=== PATIENT | female | born 1935 | race Caucasian/White ===

== ENCOUNTER 2017-11-14 23:50 | Inpatient (IN) | payer MEDICARE ==
[~2017-11-14] VITALS: Ht 185.4 cm; Wt 118.8 kg
[~2017-11-14 23:50] MED LIST: AMLO5TAB2 PO; HYDR25TA6 PO; LISI-167 PO; NYST60PO TP
[2017-11-15] MEDS ORDERED: ASPIRIN 81 MG TABLET CHEW PO ONE
[2017-11-15] MEDS ORDERED: MORPHINE SULFATE 4 MG/ML, 1ML IVPush PRN
[2017-11-15] MEDS ORDERED: ONDANSETRON ODT 4 MG PO ONE
[2017-11-15] MEDS ORDERED: ASPIRIN 81 MG TABLET CHEW ONE (00:16)
[2017-11-15] MEDS ORDERED: ONDANSETRON ODT 4 MG ONE (00:16)
[2017-11-15] MEDS ORDERED: MORPHINE SULFATE 4 MG/ML, 1ML ONE (00:16)
[2017-11-15 00:17] LABS: BASOPHILS # (AUTO) 0.01 x10^3/uL (0-0.1); BASOPHILS % (AUTO) 0 % (0-1); EOSINOPHILS # (AUTO) 0.02 x10^3/uL (0-0.4); EOSINOPHILS % (AUTO) 0 % (1-7); LYMPHOCYTES # (AUTO) 0.42 x10^3/uL (1-3.4); LYMPHOCYTES % (AUTO) 3 % (22-44); MD NO; MEAN CORPUSCULAR HEMOGLOBIN 28.7 pg (27.0-34.8); MEAN CORPUSCULAR HGB CONC 33.7 g/dL (32.4-35.8); MEAN CORPUSCULAR VOLUME 85.3 fL (80-100); MEAN PLATELET VOLUME 8.6 fL (7.4-10.4); MONOCYTES # (AUTO) 0.31 x10^3/uL (0.2-0.8); MONOCYTES % (AUTO) 3 % (2-9); NEUTROPHILS # (AUTO) 11.59 x10^3/uL (1.8-6.8); NEUTROPHILS % (AUTO) 94 % (42-75); PLATELET COUNT 213 x10^3/uL (130-400); RED BLOOD COUNT 5.02 x10^6/uL (3.82-5.3); RED CELL DISTRIBUTION WIDTH 13.8 % (9.6-15.2)
[2017-11-15 00:24] LABS: INTERNATIONAL NORMALIZED RATIO 0.97 (0.93-1.1)
[2017-11-15 00:27] LABS: ALBUMIN 3.8 g/dL (3.4-5.0); ANION GAP 8 mmol/L (5-15); CALCIUM 8.8 mg/dL (8.5-10.1); CHLORIDE 105 mmol/L (98-107); CREATININE 0.93 mg/dL (0.55-1.02)
[2017-11-15] MEDS ORDERED: SODIUM CHLORIDE FLUSH 10ML SYR IVF ONE ×2 (00:30)
[2017-11-15] MEDS ORDERED: PIPERACILLIN/TAZO/PMX 3.375GM 50 ML IV ONE (00:30)
[2017-11-15] MEDS ORDERED: SODIUM CHLORIDE 0.9% 1,000ML IVBOLUS ONE (00:30)
[2017-11-15 00:31] LABS: ALANINE AMINOTRANSFERASE 24 U/L (12-78); ALKALINE PHOSPHATASE 48 U/L (45-117); BILIRUBIN,TOTAL 0.7 mg/dL (0.2-1.0); TOTAL PROTEIN 7.5 g/dL (6.4-8.2); TROPONIN I < 0.015 ng/mL (0.000-0.045)
[2017-11-15] MEDS ORDERED: PIPERACILLIN/TAZO/PMX 3.375GM 50 ML ONE (00:40)
[2017-11-15] MEDS ORDERED: NITROGLYCERIN SINGLE TAB 0.4 MG SL ONE ×2 (02:35→03:00)
[2017-11-15 02:57] VITALS: BP 156/92
[2017-11-15] MEDS ORDERED: ASPI-650 PO (03:10)
[2017-11-15] MEDS ORDERED: KETOROLAC 30 MG/1 ML IVPush PRN (04:30)
[2017-11-15] MEDS ORDERED: NS + 20MEQ KCL 1,000 ML IV SCH (05:31)
[2017-11-15] MEDS ORDERED: POLYETHYLENE GLYCOL 17 GM PACKET PO PRN (06:00)
[2017-11-15] MEDS ORDERED: ONDANSETRON 2MG/ML, 2ML IVPush PRN (06:00)
[2017-11-15] MEDS ORDERED: ACETAMINOPHEN 325 MG TABLET PO PRN (06:00)
[2017-11-15] MEDS ORDERED: DOCUSATE 100 MG CAPSULE PO PRN (06:00)
[2017-11-15] MEDS ORDERED: morphine SULFATE 10 MG/ML, 1ML IVPush PRN (06:00)
[2017-11-15] MEDS ORDERED: OXYcodone IR 5MG TABLET PO PRN (06:00)
[2017-11-15] MEDS ORDERED: OMNIPAQUE 350 MG/ML, 100ML BOTTLE ONE (06:24)
[2017-11-15] MEDS: INSULIN LISPRO 100 UNITS/ML, PEN SQ-INSULIN SCH ×4 (07:00→20:37)
[2017-11-15 07:28] VITALS: BP 139/84
[2017-11-15 07:47] LABS: TROPONIN I < 0.015 ng/mL (0.000-0.045)
[2017-11-15] MEDS: LISINOPRIL 10 MG TABLET PO SCH ×2 (09:00→20:37)
[2017-11-15] MEDS: HYDROCHLOROTHIAZIDE 25 MG TABLET PO SCH (09:00)
[2017-11-15] MEDS: AMLODIPINE 5 MG TABLET PO SCH (09:00)
[2017-11-15] MEDS: SENNA/DOCUSATE TABLET PO SCH (09:00)
[2017-11-15 14:28] VITALS: BP 148/91
[2017-11-15] MEDS ORDERED: hydrALAzine 20 MG/ML, 1ML IV PRN (15:00)
[2017-11-15 16:42] LABS: TROPONIN I < 0.015 ng/mL (0.000-0.045)
[2017-11-15 20:00] VITALS: BP 190/110
[2017-11-16 00:10] VITALS: BP 148/86
[2017-11-16 05:16] LABS: BASOPHILS # (AUTO) 0.02 x10^3/uL (0-0.1); BASOPHILS % (AUTO) 0 % (0-1); EOSINOPHILS # (AUTO) 0.13 x10^3/uL (0-0.4); EOSINOPHILS % (AUTO) 2 % (1-7); LYMPHOCYTES # (AUTO) 1.06 x10^3/uL (1-3.4); LYMPHOCYTES % (AUTO) 19 % (22-44); MD NO; MEAN CORPUSCULAR HEMOGLOBIN 28.2 pg (27.0-34.8); MEAN CORPUSCULAR HGB CONC 33.3 g/dL (32.4-35.8); MEAN CORPUSCULAR VOLUME 84.8 fL (80-100); MEAN PLATELET VOLUME 8.9 fL (7.4-10.4); MONOCYTES % (AUTO) 9 % (2-9); NEUTROPHILS # (AUTO) 3.86 x10^3/uL (1.8-6.8); NEUTROPHILS % (AUTO) 69 % (42-75); PLATELET COUNT 171 x10^3/uL (130-400); RED BLOOD COUNT 4.65 x10^6/uL (3.82-5.3); RED CELL DISTRIBUTION WIDTH 14.1 % (9.6-15.2)
[2017-11-16 05:19] LABS: CHLORIDE 108 mmol/L (98-107)
[2017-11-16 05:29] LABS: ALANINE AMINOTRANSFERASE 28 U/L (12-78); ALBUMIN 3.2 g/dL (3.4-5.0); ALKALINE PHOSPHATASE 43 U/L (45-117); ANION GAP 5 mmol/L (5-15); BILIRUBIN,TOTAL 1.1 mg/dL (0.2-1.0); CALCIUM 8.2 mg/dL (8.5-10.1); CREATININE 0.69 mg/dL (0.55-1.02); TOTAL PROTEIN 6.6 g/dL (6.4-8.2)
[2017-11-16 06:36] VITALS: BP 169/94
[2017-11-16] MEDS: INSULIN LISPRO 100 UNITS/ML, PEN SQ-INSULIN SCH (07:00)
[2017-11-16] MEDS: SENNA/DOCUSATE TABLET PO SCH (07:43)
[2017-11-16] MEDS: HYDROCHLOROTHIAZIDE 25 MG TABLET PO SCH (08:01)
[2017-11-16] MEDS: AMLODIPINE 5 MG TABLET PO SCH (08:01)
[2017-11-16] MEDS: LISINOPRIL 10 MG TABLET PO SCH (08:02)
[2017-11-16] MEDS ORDERED: DO NOT GIVE HEPARIN BOLUS MC SCH ×2 (08:30)
[2017-11-16] MEDS ORDERED: HEPARIN 25,000 UNITS/500ML PMX 500 ML IV PRN (09:00)
[2017-11-16] MEDS ORDERED: POTASSIUM PHOSPHATE 44 MEQ in SODIUM CHLORIDE 0.9% 500 ML IV ONE (09:00)
== END 2017-11-16 10:41 | disposition left against medical advice (07) | DRG 445 ==
LOC: ED 11-15 01:59 → EDIP 11-15 02:00 → 4NOR 11-15 02:49 → 5SO 11-15 16:42
PROVIDERS: ADMIT Family Medicine; ATTEND Internal Medicine
DX: K80.12 Calculus of gallbladder with acute and chronic cholecystitis without obstruction (principal); I48.92 Unspecified atrial flutter; E66.01 Morbid (severe) obesity due to excess calories; I48.91 Unspecified atrial fibrillation; E11.9 Type 2 diabetes mellitus without complications; E83.39 Other disorders of phosphorus metabolism; I10 Essential (primary) hypertension; I25.10 Atherosclerotic heart disease of native coronary artery without angina pectoris; K76.0 Fatty (change of) liver, not elsewhere classified; Z66 Do not resuscitate; Z68.34 Body mass index [BMI] 34.0-34.9, adult; I25.2 Old myocardial infarction; Z79.82 Long term (current) use of aspirin
CPT/HCPCS: 36415; 71045; 74177; 78227; 80053; 82962; 83690; 83735; 83880; 84100; 84484; 85025; 85610; 85730; 93005; 96365; 96375; J2543; J3480; Q0162; Q9967; A9537; C9898; J1815; J7030